=== PATIENT | female | born 1945 | race Caucasian/White ===

== ENCOUNTER 2019-11-18 10:56 | Outpatient (RCR) | payer MEDICARE | END 2019-11-21 | LOC: PT 10:56 | PROVIDERS: ATTEND Specialist | DX: M17.0 Bilateral primary osteoarthritis of knee (principal); M54.16 Radiculopathy, lumbar region ==

== ENCOUNTER 2019-11-22 10:13 | Outpatient (RCR) | payer MEDICARE | END 2019-12-21 | LOC: PT 10:13 | PROVIDERS: ATTEND Specialist | DX: M17.0 Bilateral primary osteoarthritis of knee (principal) | CPT/HCPCS: 97139 ==

== ENCOUNTER 2022-03-25 05:45 | Observation (INO) | payer MEDICARE ==
[~2022-03-25] VITALS: Ht 167.6 cm; Wt 94.8 kg
[~2022-03-25 05:45] MED LIST: AMLODIPINE BESYL5 MG PO; B12; CENTRUM ADULTS1 EACH PO; DULCOLAX STOOL100 MG; METOPROLOL SUCC50 MG PO; MYSOLINE50 MG PO; OXYBUTYNIN CHLOR5 M1 PO; SIMVASTATIN20 MG PO; STOOL SOFTENER50 MG; TYLENOL325 M2; VITAMIN D31 ML
[2022-03-25] MEDS ORDERED: GABAPENTIN 300 MG CAP ONE (06:39)
[2022-03-25] MEDS ORDERED: CELECOXIB 200 MG CAP ONE (06:39)
[2022-03-25] MEDS ORDERED: DEXAMETHASONE SOD PHOS 10 MG/1 ML VIAL ONE (06:39)
[2022-03-25] MEDS ORDERED: CEFAZOLIN SODIUM 4 GM ONE (06:40)
[2022-03-25] MEDS ORDERED: TRANEXAMIC ACID 20 ML ONE (07:00)
[2022-03-25] MEDS ORDERED: Vancomycin IV 1,000 MG ONE (07:00)
[2022-03-25] MEDS ORDERED: SODIUM CHLORIDE 0.9% 500ML 500 ML ONE (07:01)
[2022-03-25] MEDS ORDERED: BUPIVACAINE HCL 0.25% 10ML MPF VIAL INJ ONE ×2 (07:40→07:41)
[2022-03-25] MEDS ORDERED: BUPIVACAINE LIPOSOME/PF 266 MG/20 ML IJ ONE (07:41)
[2022-03-25] MEDS ORDERED: DOCUSATE SODIUM 100 MG CAP PO PRN (10:00)
[2022-03-25] MEDS ORDERED: ZOLPIDEM TARTRATE 5 MG TAB PO PRN (10:00)
[2022-03-25] MEDS ORDERED: DIPHENHYDRAMINE HCL INJ 50 MG/ML VIAL IV PRN (10:00)
[2022-03-25] MEDS ORDERED: ONDANSETRON HCL INJ 2MG/ML 2ML 2 MG/ML VIAL IV PRN (10:00)
[2022-03-25] MEDS ORDERED: HYDROCODONE/APAP 5MG-325MG TAB PO PRN (10:00)
[2022-03-25] MEDS ORDERED: ACETAMINOPHEN 650 MG SUPP PR PRN (10:00)
[2022-03-25] MEDS ORDERED: HYDROMORPHONE 1MG/1ML INJ ONE (10:25)
[2022-03-25] MEDS ORDERED: SEVOFLURANE INHAL SOLN 250 ML PEN BTL ONE (12:24)
[2022-03-25] MEDS ORDERED: LIDOCAINE HCL 2% LOCAL INJ 5 ML SDV VIAL INJ ONE (12:24)
[2022-03-25] MEDS ORDERED: POVIDONE IODINE 0.05% 0.05 % ML PO ONE (12:24)
[2022-03-25] MEDS ORDERED: DEXAMETHASONE SOD PHOS INJ 4 MG/ML SDV ONE (12:24)
[2022-03-25] MEDS ORDERED: PROPOFOL IV EMULSION 10 MG/ML 20 ML VIAL ONE (12:24)
[2022-03-25] MEDS ORDERED: ONDANSETRON HCL INJ 2MG/ML 2ML 2 MG/ML VIAL ONE (12:24)
[2022-03-25 12:59] VITALS: BP 142/76
[2022-03-25 13:04] VITALS: BP 142/76
[2022-03-25] MEDS ORDERED: MIDAZOLAM HCL 2 MG/2 ML VIAL ONE (13:06)
[2022-03-25] MEDS ORDERED: FENTANYL CITRATE/PF 100MCG/2 ML INJ ONE (13:06)
[2022-03-25] MEDS: SODIUM CHLORIDE 0.9% 1000ML 1,000 ML IV SCH ×2 (13:30→23:30)
[2022-03-25] MEDS ORDERED: ASPIRIN81 MG PO (17:28)
[2022-03-25 17:31] VITALS: BP 113/49
[2022-03-25] MEDS: CELECOXIB 200 MG CAP PO SCH (17:48)
[2022-03-25] MEDS: ASPIRIN 325 MG TAB PO SCH (17:48)
[2022-03-25 20:00] VITALS: BP 113/49
[2022-03-26] MEDS: HYDROCODONE/APAP 7.5MG-325MG 1 EA TAB PO PRN ×2 (02:54→08:30)
[2022-03-26 05:41] LABS: HEMATOCRIT 35.2 % (34.2-44.1); HEMOGLOBIN 11.3 g/dL (12.0-16.0)
[2022-03-26 08:00] VITALS: BP 111/43
[2022-03-26] MEDS: CELECOXIB 200 MG CAP PO SCH (08:29)
[2022-03-26] MEDS: ASPIRIN 325 MG TAB PO SCH (08:29)
[2022-03-26 08:37] VITALS: BP 111/43
[2022-03-26] MEDS: SODIUM CHLORIDE 0.9% 1000ML 1,000 ML IV SCH (09:30)
[2022-03-26] MEDS ORDERED: ACETAMINOPHEN 1000 MG/100 ML IV PRN (10:00)
[2022-03-26] MEDS ORDERED: ONDANSETRON HCL 4 MG ORAL DISINTEGRATING TAB PO PRN (10:30)
== END 2022-03-26 11:40 | disposition home or self-care (01) ==
LOC: OR 05:45 → PACU V 09:54 → MED/SURG 12:55
PROVIDERS: ADMIT Specialist; ATTEND Specialist
DX: M17.11 Unilateral primary osteoarthritis, right knee (principal); Z01.818 Encounter for other preprocedural examination; Z20.822 Contact with and (suspected) exposure to COVID-19
CPT/HCPCS: 0223U ×2; 27447; 36415 ×3; 73560; 85014; 85018; 86850; 86900; 86920; 94799; 97110; 97116; 97162; 97530 ×2; C1713 ×3; C1776; C9290; G0378 ×2; J0171; J0690 ×2; J1100 ×2; J1170; J2001; J2250; J2405; J2704; J2795; J3010; J3370; J7040

== ENCOUNTER → 2022-08-12 | Day surgery (SDC) | payer MEDICARE ==
[2022-08-11 10:27] LABS: BASOPHILS # (AUTO) 0.1 (0.0-0.1); EOSINOPHILS # (AUTO) 0.1 (0.0-0.4); EOSINOPHILS % 1.9 % (0.0-6.0); HEMATOCRIT 43.1 % (34.2-44.1); LYMPHOCYTES # (AUTO) 1.6 (1.0-3.2); LYMPHOCYTES % 23.7 % (18.0-39.1); MEAN CORPUSCULAR HEMOGLOBIN 31.7 pg (28-32); MEAN CORPUSCULAR HGB CONC 32.5 g/dL (31-35); MEAN CORPUSCULAR VOLUME 97.7 fL (81-99); MONOCYTES # (AUTO) 0.3 (0.2-0.8); MONOCYTES % 4.2 % (4.4-11.3); NEUTROPHILS # (AUTO) 4.6 (2.1-6.9); NEUTROPHILS % 68.8 % (38.7-80.0); PLATELET COUNT 191 x10e3/uL (140-360); RED BLOOD COUNT 4.41 x10e6/uL (3.6-5.1); RED CELL DISTRIBUTION WIDTH 13.8 % (11.7-14.4)
[~2022-08-12] MED LIST changes: +ACETAMINOPHEN 1000 MG/100 ML IV PRN; +ASPIRIN81 MG PO; +CEFAZOLIN SODIUM 2 GM ONE; +CELECOXIB 200 MG CAP ONE; +DEXAMETHASONE SOD PHOS 10 MG/1 ML VIAL ONE; +DIPHENHYDRAMINE HCL INJ 50 MG/ML VIAL IV PRN; +DOCUSATE SODIUM 100 MG CAP PO PRN; +FENTANYL CITRATE/PF 100MCG/2 ML INJ ONE; +GABAPENTIN 300 MG CAP ONE; +HYDROCODONE/APAP 5MG-325MG TAB PO PRN; +HYDROCODONE/APAP 7.5MG-325MG 1 EA TAB PO PRN; +LACTATED RINGER'S 1,000 ML ONE; +LIDOCAINE HCL 2% LOCAL INJ 5 ML SDV VIAL INJ ONE; +METOCLOPRAMIDE HCL 10 MG/2ML VIAL ONE; +MIDAZOLAM HCL 2 MG/2 ML VIAL ONE; +ONDANSETRON HCL INJ 2MG/ML 2ML 2 MG/ML VIAL IV PRN; +ONDANSETRON HCL INJ 2MG/ML 2ML 2 MG/ML VIAL ONE; +PLAQUENIL200 MG PO; +POVIDONE IODINE 0.05% 0.05 % ML PO ONE; +PROPOFOL IV EMULSION 10 MG/ML 20 ML VIAL ONE; +RIVAROXABAN 10 MG TABLET PO SCH; +SERTRALINE HCL100 MG PO; +SEVOFLURANE INHAL SOLN 250 ML PEN BTL ONE; +SODIUM CHLORIDE 0.9% 1000ML 1,000 ML IV SCH; +SODIUM CHLORIDE 0.9% 500ML 500 ML ONE; +TRANEXAMIC ACID 20 ML ONE; +Vancomycin IV 1,000 MG ONE
[2022-08-12 12:15] VITALS: BP 112/57; PULSE 64; RESP 15; O2SAT 96
== END | disposition home or self-care (01) ==
LOC: OR 05:31
PROVIDERS: ATTEND Specialist
DX: M17.12 Unilateral primary osteoarthritis, left knee (principal); G47.33 Obstructive sleep apnea (adult) (pediatric); I10 Essential (primary) hypertension; E78.5 Hyperlipidemia, unspecified; J45.909 Unspecified asthma, uncomplicated; D64.9 Anemia, unspecified; F17.200 Nicotine dependence, unspecified, uncomplicated; Z88.8 Allergy status to other drugs, medicaments and biological substances; Z88.6 Allergy status to analgesic agent; Z91.040 Latex allergy status; Z01.812 Encounter for preprocedural laboratory examination; Z20.822 Contact with and (suspected) exposure to COVID-19; Z79.899 Other long term (current) drug therapy; Z68.32 Body mass index [BMI] 32.0-32.9, adult
CPT/HCPCS: 0223U; 27447; 36415; 73560; 85025; 86850; 86900; 86920; 97110; 97116; 97161; 97530; C1713 ×3; C1776 ×3; J0171; J1100; J2001; J2250; J2405; J2704; J2765; J2795; J3010; J3370; J7040; J7121

== ENCOUNTER 2023-01-12 12:59 | Outpatient (RCR) | payer MEDICARE ==
[~2023-01-12 12:59] MED LIST changes: -ACETAMINOPHEN 1000 MG/100 ML IV PRN; -CEFAZOLIN SODIUM 2 GM ONE; -CELECOXIB 200 MG CAP ONE; -DEXAMETHASONE SOD PHOS 10 MG/1 ML VIAL ONE; -DIPHENHYDRAMINE HCL INJ 50 MG/ML VIAL IV PRN; -DOCUSATE SODIUM 100 MG CAP PO PRN; -FENTANYL CITRATE/PF 100MCG/2 ML INJ ONE; -GABAPENTIN 300 MG CAP ONE; -HYDROCODONE/APAP 5MG-325MG TAB PO PRN; -HYDROCODONE/APAP 7.5MG-325MG 1 EA TAB PO PRN; -LACTATED RINGER'S 1,000 ML ONE; -LIDOCAINE HCL 2% LOCAL INJ 5 ML SDV VIAL INJ ONE; -METOCLOPRAMIDE HCL 10 MG/2ML VIAL ONE; -MIDAZOLAM HCL 2 MG/2 ML VIAL ONE; -ONDANSETRON HCL INJ 2MG/ML 2ML 2 MG/ML VIAL IV PRN; -ONDANSETRON HCL INJ 2MG/ML 2ML 2 MG/ML VIAL ONE; -POVIDONE IODINE 0.05% 0.05 % ML PO ONE; -PROPOFOL IV EMULSION 10 MG/ML 20 ML VIAL ONE; -RIVAROXABAN 10 MG TABLET PO SCH; -SEVOFLURANE INHAL SOLN 250 ML PEN BTL ONE; -SODIUM CHLORIDE 0.9% 1000ML 1,000 ML IV SCH; -SODIUM CHLORIDE 0.9% 500ML 500 ML ONE; -TRANEXAMIC ACID 20 ML ONE; -Vancomycin IV 1,000 MG ONE
== END 2023-01-20 ==
LOC: PT 12:59
PROVIDERS: ATTEND Physician Assistant
DX: Z47.1 Aftercare following joint replacement surgery (principal); Z96.653 Presence of artificial knee joint, bilateral; M62.81 Muscle weakness (generalized); M54.50 Low back pain, unspecified; M47.816 Spondylosis without myelopathy or radiculopathy, lumbar region